=== PATIENT | female | born 1945 | race Caucasian/White ===

== ENCOUNTER → 2017-01-13 | Outpatient (CLI) | payer OTHER ==
[~2017-01-13] MED LIST: ACETAMINOPHEN PO; LIPITOR PO; LORTAB 10/500 T1 TAB PO; MAALOX SUSPENSI30 ML PO; NEXIUM PO; PATIENT'S PHARMACY; PROZAC PO; PROZAC40 M1 PO; VICODIN PO; ZETIA PO; ZOCOR PO
--- NOTE | ~2017-01-13 | MY7 ---
[facility] A Service of [facility] RADIOLOGY TEXT RESULTS PATIENT: FUAD DAVIDSON LOCATION: [facility] : 47 UNIT #: [id number] AGE: [address]: Sherman Sherman MD SEX: F ORDER DR: [id number] [facility] [address] [place], [place] [address] [id number] MR#: [id number] Acc #: [id number] NAME: FUAD DAVIDSON. : 1945 SEX: F STUDY DATE/TIME: 01/13/2017 8:42 UNIT: [facility] ROOM: STUDY DESCRIPTION: MY Mammogram Dx Dig Lt Attending Physician: Sherman Sherman M.D. Referring Physician: Sherman Sherman M.D. Ordering Physician: Sherman Sherman M.D. Primary Care Physician: Sherman Sherman M.D. MEDICAL IMAGING REPORT This report is preliminary unless electronic signature is present EXAM Left breast digital diagnostic mammogram with CAD, 01/13/2017 HISTORY 71-year-old female with episode of the painful swelling of the left breast last month which has subsequently diminished. The patient denies palpable complaint today. COMPARISON Bilateral screening mammogram 02/23/2016. Bilateral diagnostic mammogram and ultrasound 01/19/2015. Bilateral screening mammogram 03/10/2014. FINDINGS CC, MLO and true ML views were obtained of the left breast utilizing digital technique and reviewed with an FDA-approved CAD device. Scattered fibroglandular densities are present. The parenchymal pattern appears stable. No new or developing nodule is seen. There is no architectural distortion or clustered microcalcification. No abnormal skin thickening or nipple retraction is identified. As there is no target lesion on mammogram, and the patient has no palpable complaint today, diagnostic ultrasound was deemed unwarranted. IMPRESSION Negative diagnostic mammogram. Any further management of the patient's left breast swelling should be based upon clinical assessment. Recommend patient return for routine bilateral screening mammogram, due in February 2017. Findings and recommendations were discussed with the patient today in the Radiology Department. Patients over the age of 40 are entered into a reminder system with target due date for the next mammogram. A result letter will also be sent to the [facility] A Service of [facility] RADIOLOGY TEXT RESULTS PATIENT: FUAD DAVIDSON LOCATION: [facility] : 47 UNIT #: [id number] AGE: [address]: Sherman Sherman MD SEX: F ORDER DR: patient. BIRADS: 1 Negative Dictated by... Halima Ron M.D. THIS IS AN ELECTRONICALLY VERIFIED REPORT Halima Ron M.D. at 01/16/2017 9:28 AM Gissell TD: 01/13/2017 09:51 JOB #: [id number] MEDICAL IMAGING REPORT Page 1 of 1 COPY
== END | disposition home or self-care (01) ==
LOC: CMAM 07:45
DX: N63 Unspecified lump in breast (principal)
CPT/HCPCS: G0206